=== PATIENT | male | born 1985 | race Caucasian/White ===

== ENCOUNTER 2018-09-20 08:43 | Inpatient (IN) | payer BC ==
[2018-09-20] MEDS ORDERED: HYDROmorphONE/DILAUDID 2 MG/ML INJ IVP ONE ×2 (08:50→09:40)
[2018-09-20] MEDS ORDERED: TDAP ADULT 0.5 ML INJ (BOOSTRIX) IM ONE (08:51)
--- NOTE | 2018-09-20 08:54 | EDPHY ---
H & P Stated Complaint: fall, L ankle injury Time Seen by Provider: 09/20/18 08:50 HPI/ROS: CHIEF COMPLAINT: Open left ankle fracture, limited trauma activation HISTORY OF PRESENT ILLNESS: 33-year-old male presents after a fall with an open left ankle fracture. He was in a climbing gym and fell approximately 30 ft. He landed on his left ankle and fell onto his side. Immediate onset of severe ankle pain and inability to weight bear. Denies other injuries. Did not hit his head; no headache or neck pain. No numbness or weakness. On EMS arrival, the ankle was splinted. Fentanyl 100 mcg IV given. Last oral intake was coffee at 7:30 a.m. Unknown last tetanus vaccination. REVIEW OF SYSTEMS: complete 10 point ROS negative except as noted in the HPI Source: Patient - Medical/Surgical History Hx Asthma: No Hx Chronic Respiratory Disease: No Hx Diabetes: No Hx Cardiac Disease: No Hx Renal Disease: No Hx Cirrhosis: No Hx Alcoholism: No Hx HIV/AIDS: No Hx Splenectomy or Spleen Trauma: No Other PMH: denies. - Social History Smoking Status: Never smoked Alcohol Use: Sober Drug Use: None - Physical Exam Exam: General Appearance: Alert, pleasant Head: Atraumatic, no swelling or tenderness Eyes: No conjunctival erythema, PERRLA, EOMI ENT, Mouth: No hemotympanum, no oral trauma, no bony tenderness Neck: Nontender, full range of motion without pain Respiratory: No chest wall tenderness, lungs clear bilaterally Cardiovascular: Regular rate and rhythm Abdomen: Abdomen is soft and nontender Skin: no abrasions Back: Normal inspection, no midline T/L/S tenderness Extremities: Pelvis is stable and nontender; left knee effusion, swelling left lateral proximal leg; left ankle deformity, 3 cm laceration anteriorly over the ankle with protruding bone and disrupted tendons, no active bleeding, able to move all toes Vascular: 2+ dorsalis pedis pulse Neurological: A&Ox3, normal motor function, decreased sensation left toes, cranial nerves intact Psychiatric: Mood and affect normal Constitutional: Initial Vital Signs Temperature (C) 36.9 C 09/20/18 08:46 Heart Rate 88 09/20/18 08:46 Respiratory Rate 16 09/20/18 08:46 Blood Pressure 127/87 H 09/20/18 08:46 O2 Sat (%) 93 09/20/18 08:46 O2 Delivery Mode Room Air Allergies/Adverse Reactions: No Known Allergies Allergy (Verified 09/20/18 09:42) Home Medications: Medication Instructions Recorded NK [No Known Home Meds] 09/20/18 Medical Decision Making - Diagnostics Imaging Results: Imaging Impressions Fluoroscopy 09/20/18 00:00 Impression: Anatomic intraoperative alignment of the knee and ankle. Ankle X-Ray 09/20/18 08:45 Impression: Left ankle fracture/dislocation as described Procedures: Procedure: Procedural sedation. A pre-sedation evaluation was completed on the patient on patient arrival. Patient is an appropriate candidate for procedural sedation. The risks of the sedation were discussed with the patient. The patient's airway was evaluated with a 3-3-2 rule; Mallampati score: 1E; there is no evidence of a difficult airway. A time out was completed. The patient was sedated with propofol 100 mg IV. The patient was monitored with continuous pulse oximetry, capnography and monitor tech. There were no complications and no significant hypoxemia. I remained at the bedside for the sedation. The total time I spent in the procedural sedation was 25 minutes. Procedure: Dislocation reduction. Indication: Dislocation of the left ankle joint. Risks, benefits, alternatives discussed with the patient and consent obtained. The ankle was reduced in the usual fashion without complications. Post reduction the patient's neurovascular exam is normal. A sterile dressing was placed over the open wound. An Orthoglass posterior long leg and sugar tong splint placed by the aviation electronics technician. Neurovascularly intact after application. ED Course/Re-evaluation: This patient presents as a limited trauma team activation with an open left fracture-dislocation of the ankle. Dilaudid 0.5 mg IV given. Initial X-rays are difficult to interpret, but reveal a fracture dislocation of the ankle. The patient received moved to room 2 and set up for procedural sedation for reduction. 0915: Dr. Mclain was consulted and will see the pt in the ED. 0920:Dr. Mukherjee was consulted because the patient presented as a limited trauma team activation. Patient tolerated the ankle reduction well. Knee X-ray after reduction reveal a comminuted left tibial plateau fracture. Dr. Mclain was informed. Log- rolled the patient with Dr. Ra Kearns present. No midline tenderness of the spine. The patient was sent to CT scan for CT scan of the left lower extremity. The patient was then sent directly to preop. Differential Diagnosis: Differential diagnosis includes though it is not limited to fracture, dislocation, tendon disruption, neurovascular compromise. - Data Points Laboratory Results: Laboratory Results 09/20/18 08:53 09/20/18 08:53 09/20/18 09/20/18 08:53 08:53 WBC 4.92 10^3/uL 10^3/uL (3.80-9.50) RBC 4.77 10^6/uL 10^6/uL (4.40-6.38) Hgb 15.3 g/dL g/dL (13.7-17.5) Hct 43.8 % % (40.0-51.0) MCV 91.8 fL fL (81.5-99.8) MCH 32.1 pg pg (27.9-34.1) MCHC 34.9 g/dL g/dL (32.4-36.7) RDW 11.5 % % (11.5-15.2) Plt Count 202 10^3/uL 10^3/uL (150-400) MPV 10.1 fL fL (8.7-11.7) Neut % (Auto) 50.7 % % (39.3-74.2) Lymph % (Auto) 38.0 % % (15.0-45.0) [place] % (Auto) 7.9 % % (4.5-13.0) Eos % (Auto) 0.4 % L % (0.6-7.6) Baso % (Auto) 0.4 % % (0.3-1.7) Nucleat RBC Rel Count 0.0 % % (0.0-0.2) Absolute Neuts (auto) 2.49 10^3/uL 10^3/uL (1.70-6.50) Absolute Lymphs (auto) 1.87 10^3/uL 10^3/uL (1.00-3.00) Absolute Monos (auto) 0.39 10^3/uL 10^3/uL (0.30-0.80) Absolute Eos (auto) 0.02 10^3/uL L 10^3/uL (0.03-0.40) Absolute Basos (auto) 0.02 10^3/uL 10^3/uL (0.02-0.10) Absolute Nucleated RBC 0.00 10^3/uL 10^3/uL (0-0.01) Immature Gran % 2.6 % H % (0.0-1.1) Immature Gran # 0.13 10^3/uL H 10^3/uL (0.00-0.10) Sodium 140 mEq/L mEq/L (135-145) Potassium 4.0 mEq/L mEq/L (3.5-5.2) Chloride 104 mEq/L mEq/L (97-110) Carbon Dioxide 23 mEq/l mEq/l (22-31) Anion Gap 13 mEq/L mEq/L (6-14) BUN 24 mg/dL H mg/dL (7-23) Creatinine 1.1 mg/dL mg/dL (0.7-1.3) Estimated GFR > 60 Glucose 103 mg/dL H mg/dL (70-100) Calcium 9.5 mg/dL mg/dL (8.5-10.4) Medications Given: Morphine Sulfate (Morphine) 1 - 2 mg IVP Q1HR PRN PRN Reason: Pain, Severe Unable to Take PO Stop: 09/30/18 10:18 Last Admin: 09/20/18 11:45 Dose: 2 mg Discontinued Medications Bupivacaine HCl (Sensorcaine 0.5% Vial) Confirm Administered Dose 30 ml .ROUTE .STK-MED ONE Stop: 09/20/18 11:58 Last Admin: 09/20/18 13:26 Dose: 30 ml Cefazolin Sodium (Ancef) Confirm Administered Dose 1 gm .ROUTE .STK-MED ONE Stop: 09/20/18 12:53 Last Admin: 09/20/18 13:26 Dose: Not Given Diphtheria/Tetanus/Acell Pertussis (Boostrix) 0.5 ml IM .ONCE ONE Stop: 09/20/18 08:52 Last Admin: 09/20/18 09:00 Dose: 0.5 ml Fentanyl (Sublimaze) 50 mcg IVP ONCE ONE Stop: 09/20/18 12:16 Last Admin: 09/20/18 12:17 Dose: 50 mcg Hydromorphone HCl (Dilaudid) 0.5 mg IVP EDNOW ONE Stop: 09/20/18 08:51 Last Admin: 09/20/18 08:59 Dose: 0.5 mg Hydromorphone HCl (Dilaudid) 0.5 mg IVP ONCE ONE Stop: 09/20/18 09:41 Last Admin: 09/20/18 09:45 Dose: 0.5 mg Cefazolin Sodium/Dextrose (Ancef 1 Gm (Premix)) 50 mls @ 200 mls/hr IV EDNOW ONE PRN Reason: Protocol Stop: 09/20/18 09:05 Last Admin: 09/20/18 09:01 Dose: 50 mls Lactated Ringer's (Lr) 1,000 mls @ 0 mls/hr IV ONCE ONE; TKO PRN Reason: Protocol Stop: 09/20/18 09:56 Last Admin: 09/20/18 11:34 Dose: 1,000 mls Cefazolin Sodium/Dextrose (Ancef) 100 mls @ 200 mls/hr IV ONCALL ONE PRN Reason: Protocol Stop: 09/20/18 12:35 Last Admin: 09/20/18 13:25 Dose: 100 mls Departure - Departure Disposition: [facility] Inpatient Acute Clinical Impression: Type III open fracture dislocation of left ankle Qualifiers: Encounter type: initial encounter Qualified Code(s): S82.892C - Other fracture of left lower leg, initial encounter for open fracture type IIIA, IIIB, or IIIC Fracture of left tibial plateau Qualifiers: Encounter type: initial encounter Fracture type: closed Qualified Code(s): S82.142A - Displaced bicondylar fracture of left tibia, initial encounter for closed fracture Condition: Fair
[2018-09-20 09:00] LABS: PLATELET COUNT 202 10^3/uL (150-400)
[2018-09-20] MEDS ORDERED: PROPOFOL 200 MG/20 ML VIAL ONE ×2 (09:14→12:19)
[2018-09-20] MEDS ORDERED: HYDROmorphONE/DILAUDID 1 MG/ML INJ ONE (09:41)
[2018-09-20] MEDS ORDERED: LR 1,000 ML IV ONE (09:55)
--- NOTE | 2018-09-20 10:17 | PDGENHP ---
History and Physical - Chief Complaint Fall from 30 ft - rock climbing - History of Present Illness This is a 33-year-old gentleman who presents to the emergency room as a limited activated trauma after 30 ft fall while climbing. Patient landed on his left ankle he recalls everything. He denies loss of consciousness head trauma or other injuries. He has an open left ankle fracture otherwise has been hemodynamically stable. Dr. Mclain from orthopedic surgery is aware in appropriate studies are being performed. Tetanus and Ancef had been given History Information - Allergies/Home Medication List Allergies/Adverse Reactions: No Known Allergies Allergy (Verified 09/20/18 09:42) Home Medications: NK [No Known Home Meds] 09/20/18 [Last Taken Unknown] I have personally reviewed and updated: family history, medical history, social history, surgical history - Past Medical History no pertinent PMH - Surgical History Reports: no pertinent surgical hx - Family History Positive for: non-pertinent - Social History Smoking Status: Never smoked Alcohol Use: Sober Drug Use: None Review of Systems Review of Systems: ROS: 2-9 pt reviewed & negative except for what was stated in HPI & below Muscolosketal: Reports: joint pain (Left ankle) Physical Exam Physical Exam: Alert oriented to person place and time Extraocular motions intact Neurologic nonfocal Sclerae anicteric Oropharynx moist dentition intact trachea midline no JVD No adenopathy cervical or supraclavicular Clear to auscultation bilaterally Regular rate and rhythm no murmurs Abdomen soft nontender nondistended, no hepatosplenomegaly Left ankle splinted in line. Distal capillary refill less than 2 sec. Sensate. Moving toes. No other long bone injuries. Extremities with full range of motion except for left lower extremity Skin normal turgor and tone no rashes Back no step-off nontender no bruising Temp Pulse Resp BP Pulse Ox 36.9 C 88 16 127/87 H 93 09/20/18 08:46 09/20/18 08:46 09/20/18 08:46 09/20/18 08:46 09/20/18 08:46 Lab Data & Imaging Review 09/20/18 08:53 09/20/18 08:53 WBC 4.92 10^3/uL (3.80-9.50) 09/20/18 08:53 RBC 4.77 10^6/uL (4.40-6.38) 09/20/18 08:53 Hgb 15.3 g/dL (13.7-17.5) 09/20/18 08:53 Hct 43.8 % (40.0-51.0) 09/20/18 08:53 MCV 91.8 fL (81.5-99.8) 09/20/18 08:53 MCH 32.1 pg (27.9-34.1) 09/20/18 08:53 MCHC 34.9 g/dL (32.4-36.7) 09/20/18 08:53 RDW 11.5 % (11.5-15.2) 09/20/18 08:53 Plt Count 202 10^3/uL (150-400) 09/20/18 08:53 MPV 10.1 fL (8.7-11.7) 09/20/18 08:53 Neut % (Auto) 50.7 % (39.3-74.2) 09/20/18 08:53 Lymph % (Auto) 38.0 % (15.0-45.0) 09/20/18 08:53 [place] % (Auto) 7.9 % (4.5-13.0) 09/20/18 08:53 Eos % (Auto) 0.4 % (0.6-7.6) L 09/20/18 08:53 Baso % (Auto) 0.4 % (0.3-1.7) 09/20/18 08:53 Nucleat RBC Rel Count 0.0 % (0.0-0.2) 09/20/18 08:53 Absolute Neuts (auto) 2.49 10^3/uL (1.70-6.50) 09/20/18 08:53 Absolute Lymphs (auto) 1.87 10^3/uL (1.00-3.00) 09/20/18 08:53 Absolute Monos (auto) 0.39 10^3/uL (0.30-0.80) 09/20/18 08:53 Absolute Eos (auto) 0.02 10^3/uL (0.03-0.40) L 09/20/18 08:53 Absolute Basos (auto) 0.02 10^3/uL (0.02-0.10) 09/20/18 08:53 Absolute Nucleated RBC 0.00 10^3/uL (0-0.01) 09/20/18 08:53 Immature Gran % 2.6 % (0.0-1.1) H 09/20/18 08:53 Immature Gran # 0.13 10^3/uL (0.00-0.10) H 09/20/18 08:53 Sodium 140 mEq/L (135-145) 09/20/18 08:53 Potassium 4.0 mEq/L (3.5-5.2) 09/20/18 08:53 Chloride 104 mEq/L (97-110) 09/20/18 08:53 Carbon Dioxide 23 mEq/l (22-31) 09/20/18 08:53 Anion Gap 13 mEq/L (6-14) 09/20/18 08:53 BUN 24 mg/dL (7-23) H 09/20/18 08:53 Creatinine 1.1 mg/dL (0.7-1.3) 09/20/18 08:53 Estimated GFR > 60 09/20/18 08:53 Glucose 103 mg/dL (70-100) H 09/20/18 08:53 Calcium 9.5 mg/dL (8.5-10.4) 09/20/18 08:53 Imaging Review: Imaging Impressions Ankle X-Ray 09/20/18 08:45 Impression: Left ankle fracture/dislocation as described CT scan of the ankle pending Assessment & Plan Assessment: Type III open fracture dislocation of left ankle (Acute) Plan: Orthopedic surgery consultation Dr. Mclain Admit to med/surg. Likely ORIF with washout today Transfer to orthopedic surgery tomorrow. Do not anticipate any need for services or other complications on this hospitalization
[2018-09-20] MEDS ORDERED: fentaNYL 100 MCG/2 ML INJ ONE ×4 (11:50→14:12)
[2018-09-20] MEDS ORDERED: BUPIVACAINE 0.5% 30 ML SDV ONE (11:57)
[2018-09-20] MEDS ORDERED: ceFAZolin 2 GM/DEXTROSE 100 ML IV ONE (12:06)
--- NOTE | 2018-09-20 12:07 | PDHPUP ---
History & Physical Update H&P update statement: This history and physical update is based on an assessment of the patient which was completed after admission or registration (within 24 hours), but prior to the surgery/procedure. H&P update: H&P reviewed & patient examined, no change in patient's condition since H&P completed
--- NOTE | 2018-09-20 12:10 | PDANEPAE ---
ANE Past Medical History - Pulmonary History Hx Oxygen in Use at Home: No Hx Sleep Apnea: No - Endocrine History Hx Diabetes: No ANE Review of Systems Review of Systems: ANE Patient History - Allergies Allergies/Adverse Reactions: No Known Allergies Allergy (Verified 09/20/18 09:42) - Home Medications Home Medications: NK [No Known Home Meds] 09/20/18 [Last Taken Unknown] - NPO status NPO Since - Liquids (Date): 09/20/18 NPO Since - Liquids (Time): 08:00 NPO Since - Solids (Date): 09/19/18 - Smoking Hx Smoking Status: Never smoked - Alcohol Use Alcohol Use: Sober ANE Labs/Vital Signs - Labs Result Diagrams: 09/20/18 08:53 09/20/18 08:53 - Vital Signs Blood Pressure: 127/87 Heart Rate: 88 Respiratory Rate: 16 O2 Sat (%): 93 Height: 180.34 cm Weight: 72.575 kg ANE Physical Exam - Airway Mallampati Score: Class 1 - ASA Status ASA Status: I ANE Anesthesia Plan Anesthesia Plan: GA w LMA Regional Anesthesia: adductor canal FNB, inguinal crease FNB
[2018-09-20] MEDS ORDERED: fentaNYL 100 MCG/2 ML INJ IVP ONE (12:15)
[2018-09-20] MEDS ORDERED: MIDAZOLAM 2 MG/2 ML VIAL ONE (12:18)
[2018-09-20] MEDS ORDERED: ONDANSETRON 4 MG/2 ML VIAL ONE ×2 (12:19→15:21)
[2018-09-20] MEDS ORDERED: METOCLOPRAMIDE 10 MG/2 ML VIAL ONE (12:19)
[2018-09-20] MEDS ORDERED: ceFAZolin 1 GM VIAL ONE (12:52)
--- NOTE | 2018-09-20 13:35 | GCON ---
[f rep st] CONSULTATION DATE OF CONSULTATION: 09/20/2018 CHIEF COMPLAINT: Left lower extremity trauma from fall. HISTORY OF PRESENT ILLNESS: A 33-year-old, who fell from 30 feet at the climbing gym. He was able l and on his foot. He complains of pain in the left ankle and knee. He presented with a left open ank le with an obvious wound and pain in the knee. He was thoroughly evaluated. These were felt to be h is isolated injuries. PAST MEDICAL HISTORY: Nonsignificant. PAST SURGICAL HISTORY: No pertinent surgical history. FAMILY HISTORY: Not pertinent. HOME MEDICATIONS: No known home medications. ALLERGIES: No known drug allergies. REVIEW OF SYSTEMS: A 9-point review of systems is performed and is negative other than the above and musculoskeletal pain. PHYSICAL EXAM: GENERAL: He is alert, oriented, and appropriate. HEENT: His head is normocephalic and atraumatic. His eye movements are normal. His face is atraumatic. NECK: Supple. CHEST: Symm etric chest rise. HEART: Regular rate and rhythm. ABDOMEN: Soft. EXTREMITIES: His upper extremi ties he moves well with no abnormalities and good strength. His left lower extremity is in a splint. I do not remove this given his known injuries. He can feel sensation in his toes. He does have in tact capillary refill. His hip is not tender. The right lower extremity moves well with no abnormal ities and neurovascularly intact. IMAGING: Radiographs show a dislocated ankle. Postreduction show reduction of the ankle with a talu s fracture. CT shows his bicondylar tibial plateau fracture and open ankle talar fracture dislocatio n. ASSESSMENT: 1. Type 3 open ankle fracture dislocation of the talus. 2. Bicondylar left tibial plateau. PLAN: We will take him to the operative room for an emergent I and D of the open fracture, and stabi lization of this with an external fixator. We will also place an external fixator given his bicondyl ar knee fracture from his femur to his heel. I discussed this with him. Treatment will be then perf ormed in a staged manner, with eventual ORIF of his tibial plateau and of his talar fracture with lig amentous repair around the ankle. He was given Ancef already. He will begin Ancef in surgery and po stoperatively. I discussed risks of infection, continued pain, arthritis, and nerve injury, as well as just the overall severe nature of his injury. He has elected to proceed. /[id number]/MODL
--- NOTE | 2018-09-20 14:01 | POSTOPPROG ---
Post Op Note Date of Operation: 09/20/18 Surgeon: Alex Mclain Ac/Dc Rewinder: none Anesthesiologist: Victorino Anesthesia: GET(General Endotracheal) Pre-op Diagnosis: Left open ankle fx, left plateau fx Post-op Diagnosis: same Indication: aboe Procedure: I and D, ex-fix, open tx talus fx dislocation Inf/Abcess present in the surg proc area at time of surgery?: No EBL: 50-100
[2018-09-20] MEDS ORDERED: PROMETHAZINE HCL 25 MG/ML INJ IVP PRN (14:05)
[2018-09-20] MEDS ORDERED: NALOXONE HCL 0.4 MG/ML INJ IVP PRN (14:05)
[2018-09-20] MEDS ORDERED: ONDANSETRON 4 MG/2 ML VIAL IVP PRN (14:05)
[2018-09-20] MEDS ORDERED: LR 500 ML IV PRN (14:05)
--- NOTE | 2018-09-20 14:07 | POSTANESTH ---
Post Anesthetic Evaluation Cardiovascular Status: Normal, Stable Respiratory Status: Normal, Stable Level of Consciousness/Mental Status: Can Participate in Eval Pain Control: Adequate, Prn Tx Ordered Nausea/Vomiting Control: Adequate, Prn Tx Ordered Complications Possibly Related to Anesthesia: None Noted
[2018-09-20] MEDS ORDERED: HYDROmorphONE/DILAUDID 2 MG/ML INJ ONE (14:12)
[2018-09-20] MEDS: fentaNYL 100 MCG/2 ML INJ IVP PRN ×2 (14:14→14:20)
[2018-09-20] MEDS: HYDROmorphONE/DILAUDID 2 MG/ML INJ IVP PRN ×3 (14:33→15:44)
--- NOTE | 2018-09-20 14:47 | GOP ---
[f rep st] OPERATIVE REPORT DATE OF OPERATION: 09/20/2018 SURGEON: Alex Mclain MD UPSETTING MACHINE OPERATOR: None. ANESTHESIA: General. PREOPERATIVE DIAGNOSIS: 1. Left open talus fracture dislocation. 2. Left bicondylar tibial plateau fracture. POSTOPERATIVE DIAGNOSIS: 1. Left open talus fracture dislocation. 2. Left bicondylar tibial plateau fracture. PROCEDURE PERFORMED: 1. Irrigation and debridement of left open talus fracture dislocation. 2. Open treatment left talar fracture dislocation. 3. Application of ex fix multiplanar spanning ex fix in femur, tibia and calcaneus. FINDINGS: SPECIMENS: None. ESTIMATED BLOOD LOSS: 5 mL. INDICATIONS: This is a young male who fell 30 feet at the [employer] gym. He had this open 4 cm laceration across the front of his ankle and an ankle dislocation. He was also diagnosed with a tibial plateau. We added him for emergent surgery given the severe nature of his injuries. I discussed with him risks of continued pain, stiffness, infection, wound complications, need for more surgery at this stage manner requiring ORIF later to the tibial plateau and further treatment of the ankle, blood clot, arthritis, pain and he would like to proceed. Informed consent was obtained. All questions answered. He was marked preoperatively. DESCRIPTION OF PROCEDURE: He was taken to the operative suite, sterilely prepped and draped in usual fashion, given more Ancef. He had been given Ancef in the ED. I began by washing out the ankle incision which did look relatively clean. Including the ankle joint and subtalar joint with 3 liters of normal saline. I did remove bony debris laterally from the talus that was unsalvageable. Performing irrigation and debridement of bone. I then closed this wound with a combination of 2-0 PDS and 3-0 nylon suture. I then did the external fixator. I located the sight for the femur pins and then placed these bicortical, same with the tibia, below the zone of injury and then through the calcaneus from medial to lateral. Constructed the ex-fix immobilizing his knee after reducing the tibial plateau fracture as well as immobilizing the ankle in a reduced mortise. The leg was clean, the dressings were applied. He is being admitted to the floor. We will plan on fixing the tibial plateau in a staged manner. He may also require a medial approach to the talar fracture as well. COMPLICATIONS: None. DRAINS: None. CONDITION: Stable. /[id number]/MODL MTDD
--- NOTE | 2018-09-20 17:31 | PDMN ---
Medical Necessity Medical necessity: Pt meets inpt criteria per MD order and [facility] [place] S-110, Ankle Fracture, Open, Open Reduction, Internal Fixation (ORIF), 2 days. 33 y/o s/p 30 ft fall at climbing gym sustaining L type 3 open ankle fx, x-ray shows severely comminuted fx of proximal tibia appearing to involve medial and lateral tibial plateaus, w/mild displacement, nondisplaced fx of proximal fibula, emergent I&D of L open talus fx dislocation, open tx L talar fx dislocation, and stabilization w/ext fix, plan to fix tibial plateau in staged manner, w/ eventual ORIF. Est LOS>2MN for ongoing management of above.
[2018-09-20] MEDS: oxyCODONE IR 5 MG TAB PO PRN ×2 (18:52→22:40)
[2018-09-20] MEDS: DIAZEPAM 5 MG TAB PO PRN ×2 (22:00→23:34)
[2018-09-21] MEDS: oxyCODONE IR 5 MG TAB PO PRN ×5 (01:15→17:21)
[2018-09-21] MEDS: DIAZEPAM 5 MG TAB PO PRN ×2 (05:11→15:46)
[2018-09-21] MEDS: ENOXAPARIN 40 MG/0.4 ML SYR SC SCH (08:17)
--- NOTE | 2018-09-21 09:08 | TRAUMAPNT ---
Trauma Tertiary Progress Note New Findings: No new finding Assessment/Plan: 33yo M s/p 30ft fall while rock climbing. Open L ankle fracture and L plateau fracture s/p I&D with ex-fix by Dr. Mclain Consider nerve block by anesthesia - will consult Dr. Aguilar (on pain service today) Per ortho - NWB LLE. Plan for definitive repair 10/01. Elevate extremity IV antibiotics - transition to PO Bowel protocol PT/OT Begin dispo planning with CM. Seen with Dr. Shaw. S: hard night due to pain and interruptions. pain not well controlled currently , just received IV morphine. O: General: well-nourished and well-groomed man, speaking softly and trying not to move due to discomfort. HENT: Normocephalic, no gross hearing deficits, mucous membranes moist, pupils equal and round Lungs: Clear to auscultation bilaterally, No increased work of breathing Cardiac: Regular rate, no peripheral edema Skin: Warm and dry. MSK: Left lower extremity ex fix hardware in place. Psych: Mood and affect normal Neuro: Grossly intact Objective: Vital Signs Temp Pulse Resp BP Pulse Ox 36.9 C 96 17 129/86 H 100 09/21/18 07:47 09/21/18 07:47 09/21/18 07:47 09/21/18 07:47 09/21/18 07:47 09/20/18 09/21/18 09/22/18 05:59 05:59 05:59 Intake Total 1160 Output Total 1050 Balance 110
[2018-09-21] MEDS ORDERED: BISACODYL 10 MG SUPP PR PRN (09:11)
[2018-09-21] MEDS ORDERED: MAGNESIUM HYDROXIDE 30 ML UDCUP PO PRN (09:11)
[2018-09-21] MEDS ORDERED: LACTULOSE 20 GM/30 ML UDCUP PO PRN (09:11)
[2018-09-21] MEDS ORDERED: POLYETHYLENE GLYCOL 3350 17 GM PKT PO PRN (09:11)
[2018-09-21] MEDS: ONDANSETRON 4 MG/2 ML VIAL IVP PRN ×2 (13:10→20:06)
--- NOTE | 2018-09-21 13:20 | SOAPPROG ---
SOAP Progress Note Assessment/Plan: Assessment: left open talus fx left plateau fx s/p ex-fix Plan: non wt bearing left leg ice elevate leave dressing in place switch ancef to keflex for open fx treatment tentatively planning definative surgery on 10/0109/21/18 13:17 Subjective: pain in entire leg Objective: Vital Signs Temp Pulse Resp BP Pulse Ox 36.3 C 105 H 18 138/86 H 100 09/21/18 11:44 09/21/18 11:44 09/21/18 11:44 09/21/18 11:44 09/21/18 11:44 09/20/18 09/21/18 09/22/18 05:59 05:59 05:59 Intake Total 1160 Output Total 1050 Balance 110 good cap refill sensation intact on forefoot spn,dpn, tibial nerve can flex/ext toes exfix intact ICD10 Worksheet Patient Problems: Problems Problem Status Onset Fracture of left tibial plateau Acute Type III open fracture dislocation of left ankle Acute
[2018-09-21] MEDS ORDERED: TEMAZEPAM 15 MG CAP PO PRN (16:02)
--- NOTE | 2018-09-21 16:03 | ASMTCMCOM ---
CM Note CM Note Notes: Pt had fall at climbing gym, had surgery with Dr. Mclain. Pt has external fixator and is scheduled for another surgery tentative 10/01. Today PT rec home, OT rec pending. Pt has been limited by pain. Pt resides with . CM to follow pt progress. D/c plan of care: likely independent Date Signed: 09/21/2018 04:02 PM Electronically Signed By:PAOLO Fitzgerald
[2018-09-21] MEDS: CEPHALEXIN 500 MG CAP PO SCH (17:21)
[2018-09-21] MEDS ORDERED: ROPIVACAINE 0.2% 1,100 MG in PUMP SET 1 EA NB SCH (20:00)
--- NOTE | 2018-09-21 20:28 | PDANEPAE ---
ANE History of Present Illness Traumatic L leg fracture after fall climbing ANE Past Medical History - Pulmonary History Hx Oxygen in Use at Home: No Hx Sleep Apnea: No - Endocrine History Hx Diabetes: No ANE Review of Systems Review of Systems: - Exercise capacity Exercise capacity: >=4 METS ANE Patient History - Allergies Allergies/Adverse Reactions: No Known Allergies Allergy (Verified 09/20/18 09:42) - Home Medications Home medications: home medication list seen and reviewed - NPO status NPO Since - Liquids (Date): 09/20/18 NPO Since - Liquids (Time): 08:00 NPO Since - Solids (Date): 09/19/18 - Anes Hx Anes Hx: no prior problems - Smoking Hx Smoking Status: Never smoked - Alcohol Use Alcohol Use: Sober ANE Labs/Vital Signs - Labs Result Diagrams: 09/20/18 08:53 09/20/18 08:53 - Vital Signs Blood Pressure: 126/89 Heart Rate: 92 Respiratory Rate: 16 O2 Sat (%): 82 Height: 180.34 cm Weight: 72.575 kg ANE Physical Exam - Airway Neck exam: FROM Mallampati Score: Class 1 Mouth exam: normal dental/mouth exam - Pulmonary Pulmonary: no respiratory distress, clear to auscultation - Cardiovascular Cardiovascular: regular rate and rhythym, no murmur, rub, or gallop - ASA Status ASA Status: I ANE Anesthesia Plan Regional Anesthesia: continuous NB, inguinal crease FNB, popliteal SNB Urgent/Emergent Case: Radha chowdhury completed preop but documented later for safe timely pt care
[2018-09-21] MEDS: SENNOSIDES/DOCUSATE SODIUM TAB PO SCH (23:49)
[2018-09-22] MEDS: CEPHALEXIN 500 MG CAP PO SCH ×4 (00:26→18:35)
[2018-09-22] MEDS: SENNOSIDES/DOCUSATE SODIUM TAB PO SCH ×2 (08:52→19:58)
[2018-09-22] MEDS: ONDANSETRON 4 MG/2 ML VIAL IVP PRN (08:52)
--- NOTE | 2018-09-22 09:12 | PDPAINCON ---
Pain Management Consultation Patient referred by : Colin - Subjective Pain at rest (/10): 0 Pain with activity (/10): 0 Pain is: no pain at all Side effects include: No drowsy, No itchiness, No nausea, No nausea/vomiting Activity: unable to ambulate - Objective Technique: continuous peripheral nerve block Site: femoral (also Sciatic) Continuous infusion: ropivicaine Catheter site: clean, dry, intact, no erythema/edema/exudate Sensory and motor exam: consistent with block Vital signs: stable - Assessment/Plan Assessment/Plan: pain well-controlled, continue current mgmt Additional comments: s/p L Femoral inguinal catheter and L Sciatic popliteal catheter. Pt reports no pain. Plan to d/c to home with OnQ pumps, running ropivicaine 0.2% at 6ml/hr each with phone f/u.
--- NOTE | 2018-09-22 11:07 | TRAUMAPN ---
Trauma Progress Note Assessment/Plan: s/p irrigation and reduction of open talus dislocation, ext fixator for comminuted tibial plateau fracture. hemodynamically stable without additional injury identified continue VTE prophylaxis at discharge for 4 weeks (high risk of VTE) outpatient FU Dr. Mclain discussed pain management with On Q catheters transitioning to oral meds. Subjective: proximal femoral pin still hurts overall feels improved pain control no BM since admission Objective: Vital Signs Temp Pulse Resp BP Pulse Ox 36.9 C 84 16 119/68 96 09/22/18 08:00 09/22/18 08:00 09/22/18 08:00 09/22/18 08:00 09/22/18 08:00 09/21/18 09/22/18 09/23/18 05:59 05:59 05:59 Intake Total 1160 450 Output Total 1050 250 Balance 110 200 - C-Spine Clearance Cervical Spine Cleared: Yes Physical Exam - Physical Exam General Appearance: alert, no apparent distress EENT: normal ENT inspection Neck: non-tender Respiratory: chest non-tender, lungs clear, normal breath sounds Cardiac/Chest: regular rate, rhythm Peripheral Pulses: 1+: dorsalis-pedis (R) (right PT +4) Abdomen: non-tender, soft Male Genitalia: deferred Rectal: deferred Skin: warm/dry Extremities: other ([id number] external fixator, dressing intact, moderate swelling and ecchymosis around dorsum of foot)
[2018-09-22] MEDS: ENOXAPARIN 40 MG/0.4 ML SYR SC SCH (11:27)
[2018-09-22] MEDS: oxyCODONE IR 5 MG TAB PO PRN ×4 (11:37→19:58)
[2018-09-22] MEDS: APIXABAN 2.5 MG TAB PO SCH ×2 (11:51→19:59)
[2018-09-22] MEDS: DIAZEPAM 5 MG TAB PO PRN ×2 (13:08→20:44)
--- NOTE | 2018-09-22 15:23 | SOAPPROG ---
SOAP Progress Note Assessment/Plan: Assessment: left open talus fx left plateau fx s/p ex-fix Plan: non wt bearing left leg ice elevate leave dressing in place switch ancef to keflex for open fx treatment oxycodone for pain eliguis for dvt prophalaxsis, stop on 09/29 tentatively planning definative surgery on 10/01 Can likely go home tomorrow, will follow up with me in clinic on thursday09/21/18 13:17 09/22/18 15:12 Subjective: pain in medial leg Objective: Vital Signs Temp Pulse Resp BP Pulse Ox 36.7 C 96 18 138/80 H 98 09/22/18 11:21 09/22/18 11:21 09/22/18 11:21 09/22/18 11:21 09/22/18 11:21 09/21/18 09/22/18 09/23/18 05:59 05:59 05:59 Intake Total 1160 450 500 Output Total 1050 250 Balance 110 200 500 thigh, leg and foot compartments soft no pain with passive stretch on toes some distal sensation dressings intact ICD10 Worksheet Patient Problems: Problems Problem Status Onset Fracture of left tibial plateau Acute Mountain climbing, rock climbing and wall climbing Acute Type III open fracture dislocation of left ankle Acute
[2018-09-23] MEDS: CEPHALEXIN 500 MG CAP PO SCH ×4 (00:02→18:11)
[2018-09-23] MEDS: oxyCODONE IR 5 MG TAB PO PRN ×4 (00:02→09:00)
[2018-09-23] MEDS ORDERED: HYDROmorphONE/DILAUDID 1 MG/ML INJ IVP PRN (02:29)
[2018-09-23] MEDS ORDERED: MAGNESIUM HYDROXIDE 30 ML UDCUP PO ONE (08:27)
[2018-09-23] MEDS ORDERED: ONDANSETRON DISINTEGRATING 4 MG TAB PO PRN (08:29)
--- NOTE | 2018-09-23 08:53 | SOAPPROG ---
SOAP Progress Note Assessment/Plan: Assessment: Plan: Subjective: out of control pain last pm pt with ex fix for multiple left leg fx, moshe on q catheters in nerve blocks excellent pain control after placement, now intermittent pain / will add round the clock tylenol, talked with anesthesia re pain pumps. not ready for dc right now due to need for iv dilaudid. options include changing to dialaudid po instead of oxy ir, increasisng oxy ir, or using oxy contin wihich iessentially never use. Objective: Vital Signs Temp Pulse Resp BP Pulse Ox 36.8 C 82 18 122/66 H 96 09/23/18 07:48 09/23/18 07:48 09/23/18 07:48 09/23/18 07:48 09/23/18 07:48 09/22/18 09/23/18 09/24/18 05:59 05:59 05:59 Intake Total 450 1000 Output Total 250 875 Balance 200 125 ICD10 Worksheet Patient Problems: Problems Problem Status Onset Fracture of left tibial plateau Acute Mountain climbing, rock climbing and wall climbing Acute Type III open fracture dislocation of left ankle Acute
[2018-09-23] MEDS: APIXABAN 2.5 MG TAB PO SCH ×2 (09:01→22:03)
[2018-09-23] MEDS: ACETAMINOPHEN 500 MG TAB PO SCH ×3 (09:01→22:03)
[2018-09-23] MEDS: SENNOSIDES/DOCUSATE SODIUM TAB PO SCH ×2 (09:01→22:02)
--- NOTE | 2018-09-23 10:09 | ASMTCMCOM ---
CM Note CM Note Notes: OT/PT continue to rec home. Trauma team and pt/ feel they would benefit from [facility] OT/PT. [facility]erral [facility] [place] alerted and informed pt PCP is Leoncio Griffith. Pt address/phone verified. Pt has been limited by pain and may not d/c today. D/c plan: Home with [facility] OT[facility]PT Date Signed: 09/23/2018 10:09 AM Electronically Signed By:PAOLO Fitzgerald
--- NOTE | 2018-09-23 10:32 | PDCONSULT ---
Earring Maker Note: Patient complaining of increased pain over his knee and ankle, 8/10. On exam he still has areas of numbness over the knee and ankle but not as profound of a sensory block as 24 hr ago. Both catheters bolused with 10ml of 2% lidocaine plain (total of 20 ml), chlorhexidine sterile technique. Negative blood aspiration. Both onQ pumps rate increased to 10ml/hr. I will reevaluate in one hour. His has my cell phone.
--- NOTE | 2018-09-23 12:56 | SOAPPROG ---
SOAP Progress Note Assessment/Plan: Assessment: left open talus fx left plateau fx s/p ex-fix Plan: non wt bearing left leg ice elevate leave dressing in place- changed today continue keflex for open fx treatment oxycodone for pain still having significant breakthrough pain but improving since bolus in catheter eliguis for dvt prophalaxsis, stop on 09/29 tentatively planning definative surgery on 10/01 Can likely go home tomorrow, will follow up with me in clinic on thursday Subjective: severe pain last night , better now Objective: Vital Signs Temp Pulse Resp BP Pulse Ox 36.2 C 85 18 119/74 99 09/23/18 11:55 09/23/18 11:55 09/23/18 11:55 09/23/18 11:55 09/23/18 11:55 09/22/18 09/23/18 09/24/18 05:59 05:59 05:59 Intake Total 450 1000 Output Total 250 875 Balance 200 125 sensation in all distributions in foot no pain with passive stretch of toes good cap refill ICD10 Worksheet Patient Problems: Problems Problem Status Onset Fracture of left tibial plateau Acute Mountain climbing, rock climbing and wall climbing Acute Type III open fracture dislocation of left ankle Acute
[2018-09-23] MEDS: ONDANSETRON 4 MG/2 ML VIAL IVP PRN (13:09)
[2018-09-23] MEDS ORDERED: ROPIVACAINE 0.2% 1,100 MG in PUMP SET 1 EA NB SCH (16:00)
[2018-09-23] MEDS ORDERED: CYCLOBENZAPRINE 10 MG TAB PO SCH (16:00)
[2018-09-23] MEDS: CYCLOBENZAPRINE 10 MG TAB PO SCH ×2 (16:50→22:15)
[2018-09-24] MEDS: CEPHALEXIN 500 MG CAP PO SCH ×3 (01:10→13:00)
[2018-09-24] MEDS: CYCLOBENZAPRINE 10 MG TAB PO SCH ×2 (03:37→16:50)
[2018-09-24] MEDS: ACETAMINOPHEN 500 MG TAB PO SCH ×2 (05:34→12:59)
[2018-09-24] MEDS: APIXABAN 2.5 MG TAB PO SCH (08:27)
[2018-09-24] MEDS: SENNOSIDES/DOCUSATE SODIUM TAB PO SCH (08:27)
--- NOTE | 2018-09-24 09:20 | PDPAINCON ---
Pain Management Consultation Patient referred by : Chemo - Subjective Pain at rest (/10): 1 Pain with activity (/10): 1 Pain is: low, well controlled Side effects include: No drowsy, No itchiness, No nausea Activity: participating in PT - Objective Technique: continuous peripheral nerve block Site: femoral Catheter site: clean, dry, intact, no erythema/edema/exudate Sensory and motor exam: consistent with block Vital signs: stable - Assessment/Plan Assessment/Plan: pain well-controlled, continue current mgmt Additional comments: Pt seen and examined. Discussed home care of catheters and OnQ, including change of infusion and taper over the weekend. Pt/family expressed understanding. Plan to fu by phone.
--- NOTE | 2018-09-24 09:22 | PDIAF ---
- Diagnosis Code Status: Full Code - Medication Management Discharge Medications: electronically signed and located in the Home Medication List. - Orders Services needed: Home Care, Registered Nurse Home Care Face to Face: I certify that this patient was under my care and that I had the required [id number] encounter meeting the encounter requirements on the discharge day. My findings support the fact that the patient is homebound as defined in Home Care Face to Face Continued: CMS Chapter 7 Medicare Benefits Manual 30.1.1 , The condition of the patient is such that there exists a normal inability to leave home and consequently, leaving home would require a considerable and taxing effort. Diet Recommendation: no restrictions on diet Diet Texture: Regular Texture Diet Additional Instructions: non weight bearing left leg ice elevate as much as possible leave dressing in place DOMITILA Mclain next week for pre-op visit prior to ORIF next ThursdayOctober 01 You were taught how to exchange the Q-pumps by anesthesia, please call if you have questions. - Follow Up Care Current Providers and Referrals: Alex Mclain MD [Medical Doctor] - 09/28/18 (call to confirm apt) Patient,NotPresent [Unknown] - As per Instructions
--- NOTE | 2018-09-24 09:50 | ASMTLACE ---
LACE Length of stay for Answers: 4-6 days current admission Acuity / Level of Answers: Yes Care: Did the patient have an inpatient admission? # of Emergency department Answers: 1-2 visits in the last 6 months Score: 8 Date Signed: 09/24/2018 09:50 AM Electronically Signed By:PAOLO Fitzgerald
--- NOTE | 2018-09-24 09:51 | GDS ---
[f rep st] DISCHARGE SUMMARY REASON FOR ADMISSION: Climbing, fall. HOSPITAL COURSE: 33-year-old healthy male sustained a 30-foot fall while climbing at the local [email or web address]. His injuries included a bicondylar left tibial plateau fracture as well as type 3 open ankle talus dislocation. He was taken to the operating room for ORIF with external fixator placement. His postoperative course was notable for significant pain. Pain pump catheters were placed by Dr. Aguilar from the [facility] with significant improved pain control. He was discharged to home, ambulating independently with the use of a walker on the . He was given prescriptions for ongoing Keflex, Eliquis, Oxy IR p.r.n., Flexeril p.r.n., Valium p.r.n., Zofran p.r.n., Restoril p.r.n., as well as a bowel regimen. He will follow up with Dr. Mclain next week as scheduled. Full activity instructions were explained to the patient prior to leaving. /[id number]/MODL MTDD
--- NOTE | 2018-09-24 09:56 | PDIAF ---
- Diagnosis Diagnosis: ankle fracture Code Status: Full Code - Medication Management Discharge Medications: electronically signed and located in the Home Medication List. - Orders Services needed: Home Care, Registered Nurse, Physical Therapy Home Care Face to Face: I certify that this patient was under my care and that I had the required [id number] encounter meeting the encounter requirements on the discharge day. My findings support the fact that the patient is homebound as defined in Home Care Face to Face Continued: CMS Chapter 7 Medicare Benefits Manual 30.1.1 , The condition of the patient is such that there exists a normal inability to leave home and consequently, leaving home would require a considerable and taxing effort. Diet Recommendation: no restrictions on diet Diet Texture: Regular Texture Diet Additional Instructions: non weight bearing left leg ice elevate as much as possible leave dressing in place FU Dr. Mclain next week for pre-op visit prior to ORIF next ThursdayOctober 01 You were taught how to exchange the Q-pumps by anesthesia, please call if you have questions. - Follow Up Care Current Providers and Referrals: Alex Mclain MD [Medical Doctor] - 09/28/18 (call to confirm apt) Patient,NotPresent [Unknown] - As per Instructions
--- NOTE | 2018-09-24 14:09 | SOAPPROG ---
SOAP Progress Note Assessment/Plan: Assessment: left open talus fx left plateau fx s/p ex-fix Plan: non wt bearing left leg ice elevate leave dressing in place- changed today no pin care needed continue keflex for open fx treatment oxycodone for pain still having significant breakthrough pain but improving since bolus in catheter eliguis for dvt prophalaxsis, stop on 09/29 planning definative surgery on 10/01 home today 09/24/18 14:08 Subjective: pain better today Objective: Vital Signs Temp Pulse Resp BP Pulse Ox 36.5 C 100 18 128/97 H 97 09/24/18 11:10 09/24/18 11:10 09/24/18 11:10 09/24/18 11:10 09/24/18 11:10 09/23/18 09/24/18 09/25/18 05:59 05:59 05:59 Intake Total 1000 450 Output Total 875 200 250 Balance 125 250 -250 compartments soft no pain passive stretch sensation intact in foot and knee ex-fix inplace ICD10 Worksheet Patient Problems: Problems Problem Status Onset Fracture of left tibial plateau Acute Mountain climbing, rock climbing and wall climbing Acute Type III open fracture dislocation of left ankle Acute
--- NOTE | 2018-09-24 16:50 | ASMTCMCOM ---
CM Note CM Note Notes: Pt medically stable for d/c with [facility] PT. Orders to be obtained via [facility]. Pt still scheduled for surgery with Dr. Mclain 10/01/18. Date Signed: 09/24/2018 04:50 PM Electronically Signed By:PAOLO Fitzgerald
[2018-09-24 18:41] VITALS: BP 126/87
--- NOTE | 2018-09-30 16:33 | PQFORM ---
PHYSICIAN QUERY FORM Needs Your Response This query form is being sent to you to assure this patient record is coded properly. Please respond to the question below: TRAVELING PHLEBOTOMIST QUESTION: Dear Dr. Mclain, For coding purposes (there is a different code choice for excisional versus non excisional debridement)- please clarify if the debridement done on 20 September 2018 was: __x_~ Excisional ___~ Non Excisional ___~ Other Thank You Laine Adams, SUSIE HIM/Coding Dept. INSTRUCTIONS FOR RESPONSE: Answer question by clicking on the "Edit Document" button. Move cursor to area below the stars. When complete, hit "Save." Click on the "Sign" button, then click "Sign" again. Type in your PIN and hit "Enter." MTDD
== END 2018-09-24 17:42 | disposition home health service (06) | DRG 494 ==
LOC: EDUNIT# → F3N 16:18
PROVIDERS: ADMIT Surgery; ATTEND Surgery
PROC: 0QBH0ZZ Excision of Left Tibia, Open Approach (ICD-10-PCS; principal; 2018-09-20 14:45)
PROC: 0SSGXZZ Reposition Left Ankle Joint, External Approach (ICD-10-PCS; 2018-09-20 14:45)
DX: S82.142 Displaced bicondylar fracture of left tibia (principal); S82.402A Unspecified fracture of shaft of left fibula, initial encounter for closed fracture; W17.89XA Other fall from one level to another, initial encounter; Y93.31 Activity, mountain climbing, rock climbing and wall climbing
CPT/HCPCS: 96374; 97116-GP; 97162-GP; 97165-GO; 97530-GO; 97530-GP; 97535-GO; C1713; J0690; J1170; J1650; J2250; J2270; J2405; J2704; J2765; J2795; J3010

== ENCOUNTER 2018-10-01 05:35 | Observation (INO) | payer BC ==
[2018-10-01] MEDS: HYDROmorphONE/DILAUDID 1 MG/ML INJ IVP PRN (00:05)
[2018-10-01] MEDS ORDERED: LR 1,000 ML IV ONE (05:52)
[2018-10-01] MEDS ORDERED: MIDAZOLAM 2 MG/2 ML VIAL IVP ONE (06:51)
--- NOTE | 2018-10-01 07:00 | PDANEPAE ---
ANE History of Present Illness ORIF LT Tibial Fx ANE Past Medical History - Cardiovascular History Hx Hypertension: No Hx Arrhythmias: No Hx Chest Pain: No Hx Coronary Artery / Peripheral Vascular Disease: No Hx CHF / Valvular Disease: No Hx Palpitations: No - Pulmonary History Hx COPD: No Hx Asthma/Reactive Airway Disease: No Hx Recent Upper Respiratory Infection: No Hx Oxygen in Use at Home: No Hx Sleep Apnea: No Sleep Apnea Screening Result - Last Documented: Negative - Neurologic History Hx Cerebrovascular Accident: No Hx Seizures: No Hx Dementia: No - Endocrine History Hx Diabetes: No Hypothyroid: No Hyperthyroid: No Obesity: no - Renal History Hx Renal Disorders: No - Liver History Hx Hepatic Disorders: No - Neurological & Psychiatric Hx Hx Neurological and Psychiatric Disorders: No - Cancer History Hx Cancer: No - Congenital Disorder History Hx Congenital Disorders: No - GI History GERD: mild Hx Gastrointestinal Disorders: No - Chronic Pain History Chronic Pain: No - Surgical History Prior Surgeries: LT ANKLE ORIF 09/20/18 ANE Review of Systems Review of Systems: - Exercise capacity METS (RN): 6 METS ANE Patient History - Allergies Allergies/Adverse Reactions: No Known Allergies Allergy (Verified 09/20/18 09:42) - Home Medications Home Medications: Cyclobenzaprine [Flexeril 10 MG (*)] 10 mg PO HS 09/30/18 [Last Taken 09/30/18] Sennosides/Docusate Sodium [Senokot-S] 1 - 2 tab PO DAILY 09/30/18 [Last Taken 09/30/18] - NPO status NPO Status: no food or drink >8 hours NPO Since - Liquids (Date): 09/30/18 NPO Since - Liquids (Time): 23:55 NPO Since - Solids (Date): 09/30/18 NPO Since - Solids (Time): 20:00 - Anes Hx Anes Hx: post operative nausea - Smoking Hx Smoking Status: Never smoked ANE Labs/Vital Signs - Vital Signs Blood Pressure: 126/81 Heart Rate: 88 Respiratory Rate: 16 O2 Sat (%): 98 Height: 177.8 cm Weight: 72.575 kg ANE Physical Exam - Airway Neck exam: FROM Mallampati Score: Class 1 Mouth exam: normal dental/mouth exam - Pulmonary Pulmonary: no respiratory distress, no rales or rhonchi - Cardiovascular Cardiovascular: regular rate and rhythym, no murmur, rub, or gallop - ASA Status ASA Status: I ANE Anesthesia Plan Anesthesia Plan: general endotracheal anesthesia Regional Anesthesia: continuous NB, inguinal crease FNB (Pt would like continuous nerve blocks. Would prefee Lauren to do blocks if possible), popliteal SNB
[2018-10-01] MEDS ORDERED: ceFAZolin 2 GM/DEXTROSE 100 ML IV ONE (07:10)
[2018-10-01] MEDS ORDERED: fentaNYL 250 MCG/5 ML INJ ONE (07:17)
[2018-10-01] MEDS ORDERED: PROPOFOL/EMULSION 500 MG/50 ML BOTTLE IV ONE ×5 (07:17→09:24)
[2018-10-01] MEDS ORDERED: BUPIVACAINE 0.5% 30 ML SDV ONE (07:22)
[2018-10-01] MEDS ORDERED: ROCURONIUM 100 MG/10 ML VIAL ONE ×2 (08:36→09:32)
[2018-10-01] MEDS ORDERED: GLYCOPYRROLATE 0.2 MG/1 ML VIAL ONE ×3 (08:36→10:59)
[2018-10-01] MEDS ORDERED: LIDOCAINE 2% 5 ML SDV ONE (08:36)
[2018-10-01] MEDS ORDERED: HYDROGEN PEROXIDE 236 ML BOTTLE TP ONE (10:22)
[2018-10-01] MEDS ORDERED: LABETALOL HCL 5 MG/ML 20 ML MDV ONE (10:32)
[2018-10-01] MEDS ORDERED: ONDANSETRON 4 MG/2 ML VIAL ONE (10:32)
[2018-10-01] MEDS ORDERED: ROPIVACAINE HCL 150 MG/30 ML INJ ONE ×2 (10:44→10:47)
[2018-10-01] MEDS ORDERED: fentaNYL 100 MCG/2 ML INJ IVP PRN (10:48)
[2018-10-01] MEDS ORDERED: ONDANSETRON 4 MG/2 ML VIAL IVP PRN (10:48)
[2018-10-01] MEDS ORDERED: oxyCODONE IR 5 MG TAB PO PRN ×2 (10:48→11:12)
[2018-10-01] MEDS ORDERED: LABETALOL HCL 5 MG/ML 20 ML MDV IVP PRN (10:48)
[2018-10-01] MEDS ORDERED: NALOXONE HCL 0.4 MG/ML INJ IVP PRN (10:48)
[2018-10-01] MEDS ORDERED: LIDOCAINE 2% 2 ML INJ ONE ×4 (10:48)
[2018-10-01] MEDS ORDERED: PROMETHAZINE HCL 25 MG/ML INJ IVP PRN (10:48)
[2018-10-01] MEDS ORDERED: ACETAMINOPHEN 500 MG TAB PO PRN (10:48)
[2018-10-01] MEDS ORDERED: HYDROCODONE/APAP 5/325 TAB PO PRN (10:48)
[2018-10-01] MEDS ORDERED: HYDROmorphONE/DILAUDID 2 MG/ML INJ IVP PRN (10:48)
[2018-10-01] MEDS ORDERED: NEOSTIGMINE METHYLSULFATE 5 MG/5 ML SYR ONE (10:58)
--- NOTE | 2018-10-01 11:11 | POSTOPPROG ---
Post Op Note Date of Operation: 10/01/18 Surgeon: Alex Mclain Barrel Coater: Brandon Anesthesiologist: Ap Anesthesia: GET(General Endotracheal) Pre-op Diagnosis: left plateau and talus fx Post-op Diagnosis: same Indication: above Procedure: orif left plateau and talus fx Inf/Abcess present in the surg proc area at time of surgery?: No EBL: 50-100
--- NOTE | 2018-10-01 11:11 | PDANEPAE ---
ANE History of Present Illness traumatic fall s/p ORIF, here for nerve blocks with catheters ANE Past Medical History - Cardiovascular History Hx Hypertension: No Hx Arrhythmias: No Hx Chest Pain: No Hx Coronary Artery / Peripheral Vascular Disease: No Hx CHF / Valvular Disease: No Hx Palpitations: No - Pulmonary History Hx COPD: No Hx Asthma/Reactive Airway Disease: No Hx Recent Upper Respiratory Infection: No Hx Oxygen in Use at Home: No Hx Sleep Apnea: No Sleep Apnea Screening Result - Last Documented: Negative - Neurologic History Hx Cerebrovascular Accident: No Hx Seizures: No Hx Dementia: No - Endocrine History Hx Diabetes: No Hypothyroid: No Hyperthyroid: No Obesity: no - Renal History Hx Renal Disorders: No - Liver History Hx Hepatic Disorders: No - Neurological & Psychiatric Hx Hx Neurological and Psychiatric Disorders: No - Cancer History Hx Cancer: No - Congenital Disorder History Hx Congenital Disorders: No - GI History GERD: mild Hx Gastrointestinal Disorders: No - Chronic Pain History Chronic Pain: No - Surgical History Prior Surgeries: LT ANKLE ORIF 09/20/18 ANE Review of Systems Review of Systems: - Exercise capacity METS (RN): 6 METS ANE Patient History - Allergies Allergies/Adverse Reactions: No Known Allergies Allergy (Verified 09/20/18 09:42) - Home Medications Home Medications: Cyclobenzaprine [Flexeril 10 MG (*)] 10 mg PO HS 09/30/18 [Last Taken 09/30/18] Sennosides/Docusate Sodium [Senokot-S] 1 - 2 tab PO DAILY 09/30/18 [Last Taken 09/30/18] - NPO status NPO Status: no food or drink >8 hours NPO Since - Liquids (Date): 09/30/18 NPO Since - Liquids (Time): 23:55 NPO Since - Solids (Date): 09/30/18 NPO Since - Solids (Time): 20:00 - Smoking Hx Smoking Status: Never smoked ANE Labs/Vital Signs - Vital Signs Blood Pressure: 126/81 Heart Rate: 88 Respiratory Rate: 16 O2 Sat (%): 98 Height: 177.8 cm Weight: 72.575 kg ANE Physical Exam - Airway Neck exam: FROM - Pulmonary Pulmonary: no respiratory distress - Cardiovascular Cardiovascular: regular rate and rhythym ANE Anesthesia Plan Regional Anesthesia: inguinal crease FNB (with catheter), popliteal SNB (with catheter), POPC/PSR
[2018-10-01] MEDS ORDERED: HYDROmorphONE/DILAUDID 1 MG/ML INJ IVP PRN (11:12)
[2018-10-01] MEDS ORDERED: fentaNYL 100 MCG/2 ML INJ ONE (11:55)
[2018-10-01] MEDS ORDERED: ROPIVACAINE 0.2% 1,100 MG in PUMP SET 1 EA NB SCH ×2 (12:15→12:30)
--- NOTE | 2018-10-01 12:24 | GOP ---
[f rep st] OPERATIVE REPORT DATE OF OPERATION: 10/01/2018 SURGEON: Alex Mclain MD MOTORCYCLE TESTER: Nilo Taylor MD ANESTHESIA: General with postoperative block performed for pain control with indwelling popliteal and femoral block. PREOPERATIVE DIAGNOSIS: External fixator left bicondylar tibial plateau fracture, left subtalar fracture dislocation, with talus fracture open. POSTOPERATIVE DIAGNOSIS: External fixator bicondylar tibial plateau fracture, left subtalar fracture dislocation, with talus fracture open. PROCEDURE PERFORMED: 1. Left removal of external fixator. 2. Left ORIF of bicondylar tibial plateau fracture. 3. Open reduction, internal fixation, left talus fracture through new incision. FINDINGS: COMMUNINTED FRACTURES SPECIMENS: NONE ESTIMATED BLOOD LOSS: 100 mL. INDICATIONS: A male who fell from height. I placed an external fixator on him and did an I and D, and treatment of the anterior portion of the open fracture 10 days ago. His swelling was acceptable and we elected for the definitive fixation. We discussed risks of inability to do all parts of the surgery, nerve injury, continued pain, wound infection, complications, instability, arthritis, stiffness, elected proceed. Informed consent obtained. All questions were answered. He was marked preoperatively. DESCRIPTION OF PROCEDURE: He was taken to the operative suite. Anesthesia was induced. The ex-fix was removed and the pin sites were clean. The entire leg was prepped and draped in normal fashion. Time-out was performed verifying site , side, location, and there was agreement with the team. I placed Ioban over the pin sites. I made an incision to the lateral tibial plateau, protecting neurovascular structures and got down to bone, and then did a sub-meniscal arthrotomy to expose the joint. I then exposed the medial side protecting neurovascular structures doing sub-meniscal arthrotomy and tagged the meniscus. I worked back and forth on both sides of the fracture to obtain reduction. The medial side by far was the most articular abnormality, but I was able to restore the congruity and obtained provisional fixation. Also, the length and line had been mostly restored with the external fixator, and I was able to get this back near anatomic length, alignment, rotation. I selected a medial and lateral plate. I brought this to bone with cortical screws. I then placed a provisional proximal fixation, and then distal fixation on both sides with cortical screws. I then worked back and forth placing a rafting screws on both sides to capture as many fragments as possible. I felt I had restored the articular congruity. I was able to look into the joint to the meniscal arthrotomies and see established articular congruity of the main fracture lines. The joint had been thoroughly irrigated as well. I did placed and oriented the defect medially. The ankle was exposed through a medial approach to the subtalar joint. Protecting neurovascular structures, I worked between the posterior tib and the FDL. I exposed the fracture, debrided the 1 extra-articular fragment, which was highly comminuted. I then worked into the joint, the sinus tarsi and removed loose debrided fragments. The articular fragment I was able to galindo back into place, restoring portion of the articular surface that had been fractured and the majority of the posterior facet. I placed a single 2.5 headless screw across this as this was all this with accept, and this held this stable. I then irrigated this thoroughly. I checked this fluoroscopically. I took final films of everything, like my length, alignment, position, rotation, reductions. The tourniquet was released. Hemostasis obtained. Closed with #1 Vicryl, 0 Vicryl, 2-0 Vicryl, 3-0 Quill, and Dermabond. The meniscus had been repaired back to the plate. He was placed in sterile dressing and taken to PACU in stable condition. COMPLICATIONS: None. DRAINS: None. CONDITION: Stable. /[id number]/MODL MTDD
[2018-10-01] MEDS: ONDANSETRON 4 MG/2 ML VIAL IVP PRN ×2 (13:37→20:12)
[2018-10-01] MEDS: ACETAMINOPHEN 500 MG TAB PO SCH ×2 (14:14→21:35)
[2018-10-01] MEDS: oxyCODONE IR 5 MG TAB PO PRN ×5 (14:15→23:42)
--- NOTE | 2018-10-01 15:05 | ASMTCMCOM ---
CM Note CM Note Notes: Pt came back to [facility] to have ortho surgery, removal of ext fixator with orif L plateau and talus fx. Pt resides with and young children. Pt d/c from [facility] 09/24/18 with [facility] and Carmella at [facility] reports they have d/c pt. OT/PT evals pending. Pt d/c plan of care is TBD Date Signed: 10/01/2018 03:04 PM Electronically Signed By:PAOLO Fitzgerald
[2018-10-01] MEDS: ceFAZolin 2 GM/DEXTROSE 100 ML IV SCH ×2 (15:59→23:35)
[2018-10-01] MEDS ORDERED: LACTULOSE 20 GM/30 ML UDCUP PO PRN (16:47)
[2018-10-01] MEDS ORDERED: POLYETHYLENE GLYCOL 3350 17 GM PKT PO PRN (16:47)
[2018-10-01] MEDS ORDERED: BISACODYL 10 MG SUPP PR PRN (16:47)
[2018-10-01] MEDS ORDERED: MAGNESIUM HYDROXIDE 30 ML UDCUP PO PRN (16:47)
[2018-10-01] MEDS: SENNOSIDES/DOCUSATE SODIUM TAB PO SCH (20:07)
[2018-10-01] MEDS ORDERED: CYCLOBENZAPRINE 10 MG TAB PO SCH (21:00)
[2018-10-02] MEDS: HYDROmorphONE/DILAUDID 1 MG/ML INJ IVP PRN ×2 (01:09→02:09)
[2018-10-02] MEDS: oxyCODONE IR 5 MG TAB PO PRN ×7 (02:08→13:54)
[2018-10-02] MEDS: ACETAMINOPHEN 500 MG TAB PO SCH ×2 (05:02→13:54)
[2018-10-02] MEDS: SENNOSIDES/DOCUSATE SODIUM TAB PO SCH (08:09)
--- NOTE | 2018-10-02 10:37 | SOAPPROG ---
SOAP Progress Note Assessment/Plan: Assessment: L plateau and talus orif 10/01 Plan: non wt bearing left leg leave dressing keep dry elevate ice November d/c today as long as pain controlled on oral meds with nerve blocks 10/02/18 10:35 Subjective: pain better this am Objective: Vital Signs Temp Pulse Resp BP Pulse Ox 36.7 C 112 H 18 122/77 H 97 10/02/18 08:00 10/02/18 08:00 10/02/18 08:00 10/02/18 08:00 10/02/18 08:00 10/01/18 10/02/18 10/03/18 05:59 05:59 05:59 Intake Total 3415 Output Total 2860 400 Balance 555 -400 sensation in toes no pain with passive stretch ICD10 Worksheet Patient Problems: Problems Problem Status Onset Fracture of left tibial plateau Acute Mountain climbing, rock climbing and wall climbing Acute Type III open fracture dislocation of left ankle Acute
[2018-10-02] MEDS ORDERED: APIXABAN 2.5 MG TAB PO SCH (10:45)
[2018-10-02 11:50] VITALS: BP 124/73
[2018-10-02] MEDS ORDERED: ROPIVACAINE HCL 150 MG/30 ML INJ ONE (13:04)
--- NOTE | 2018-10-02 13:54 | PDPAINCON ---
Pain Management Consultation Patient referred by : Chemo - Subjective Pain is: under control Comments: Pt states he got behind the pain last night. Needed 15 of Oxy to get back under control. Dr. Barnes also bolused stronger local anesthetic ~1hr ago and states he is doing good now. With plan to go home - Objective Technique: continuous peripheral nerve block Vital signs: stable Additional comments: Continous Femoral and Popliteal catheters - Assessment/Plan Additional comments: Reinforced that he should use the oxycodone to stay ahead of the pain. To continue the peripherial infusions as they are. That they would likely run dry ~30hr.
--- NOTE | 2018-10-02 14:41 | SOAPPROG ---
SOAP Progress Note Assessment/Plan: Assessment: patient complained of 7/10 pain yesterday afternoon after initial block wore off , then upto 10/10 pain when unable to get oral/IV pain medication last night. Patient turned up OnQ catheter rate to 12ml/hr, was given IV dilaudid and today pain manageable at 5/10. Patient is getting discharged and wanted to have pain optimally managed prior to going home. Catheters were inspected, C/D/I, disconnected to verify that they are flowing and reconnected. Vitals stable, patient alert and oriented. Catheters were then injected with 0.5% ropivacine 10 ml each at each location. Patient was comfortable throughout and less pain after injections. Plan:discharge, continue On Q pump, remove when empty. 10/02/18 13:28 Objective: Vital Signs Temp Pulse Resp BP Pulse Ox 36.3 C 98 14 124/73 H 100 10/02/18 11:49 10/02/18 11:49 10/02/18 11:49 10/02/18 11:49 10/02/18 11:49 10/01/18 10/02/18 10/03/18 05:59 05:59 05:59 Intake Total 3415 Output Total 2860 400 Balance 555 -400 - Pending Discharge Pending Discharge Within 24 Hours: Yes Pending Discharge Date: 10/03/18 Pending Discharge Time: 11:00 ICD10 Worksheet Patient Problems: Problems Problem Status Onset Fracture of left tibial plateau Acute Mountain climbing, rock climbing and wall climbing Acute Type III open fracture dislocation of left ankle Acute
--- NOTE | 2018-10-04 15:19 | GDS ---
[f rep st] DISCHARGE SUMMARY HOSPITAL COURSE: He was admitted to the hospital after an ORIF of his left tibial plateau and left t alus fracture. He progressed, was able to have his pain controlled with oral pain medicine the o wing day after surgery. Did require some IV pain medications overnight. His blocks were working, an d he understood his discharge instructions. CONDITION ON DISCHARGE: Stable. CONSULTING PHYSICIANS: Anesthesia and Pain Management. PROCEDURE: Open reduction internal fixation of left tibial plateau fracture and open reduction inter nal fixation of left talus fracture. DISPOSITION: Home. DIET: He is on a regular diet. DISCHARGE INSTRUCTIONS: He is nonweightbearing on the left lower extremity. His dressings he will k eep in place and will change as needed. He will take his Eliquis for his DVT prophylaxis, which was prescribed 2.5 mg twice a day. He will also take oxycodone as needed. He is on no other home medica tions. He was then switched to an aspirin a day after he was done with Eliquis for DVT prophylaxis. He has a followup appointment to see me in 1 week for further evaluation. Call or come back to the hospital he has chest pain, shortness of breath, bleeding, or other concerns. /[id number]/MODL
--- NOTE | 2018-10-27 12:39 | GPROG ---
[f rep st] PROGRESS NOTE POST ANESTHESIA NOTE The patient had a general anesthetic on October 01, 2018. Anesthesia was performed for revision of lef t leg fractures. The patient had external fixator taken off. The patient was taken to recovery room , where he was able to have his pain controlled, his nausea was controlled, and he was able to partic ipate with the anesthetic. He had popliteal and saphenous nerve blocks performed by Dr. Aguilar. The patient was seen by the pain service postoperative day #1, where no anesthetic complications were not ed. I agree with no anesthesia complications noted. He was discharged to home on postoperative day 1. /[id number]/MODL
== END 2018-10-02 14:17 | disposition home or self-care (01) ==
LOC: INTOOBSV 05:35 → F3N 05:35
PROVIDERS: ADMIT Orthopaedic Surgery; ATTEND Orthopaedic Surgery
PROC: 0QSH04Z Reposition Left Tibia with Internal Fixation Device, Open Approach (ICD-10-PCS; principal; 2018-10-01 07:15)
PROC: 0QSM04Z Reposition Left Tarsal with Internal Fixation Device, Open Approach (ICD-10-PCS; principal; 2018-10-01 07:15)
PROC: BQ1H1ZZ Fluoroscopy of Left Ankle using Low Osmolar Contrast (ICD-10-PCS; principal; 2018-10-01 07:15)
DX: S82.142 Displaced bicondylar fracture of left tibia (principal); S82.402A Unspecified fracture of shaft of left fibula, initial encounter for closed fracture; W17.89XA Other fall from one level to another, initial encounter; Y93.31 Activity, mountain climbing, rock climbing and wall climbing
CPT/HCPCS: 27536; 28445; 76000; 97116; 97161; 97165; 97530; C1769; G0378; C1713; J0690; J1170; J2250; J2405; J2704; J2710; J2795; J3010; L1832